=== PATIENT | female | born 2005 | race African-American/Black ===

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

== ENCOUNTER 2024-07-24 10:00 | Day surgery (SDC) | payer MEDICAID ==
[2024-07-24] MEDS ORDERED: Acetaminophen 500 MG TAB ONE (10:26)
[2024-07-24] MEDS: Acetaminophen 500 MG TAB PO SCH (10:28)
[2024-07-24] MEDS: Ferumoxytol (ERSD) 510 MG in 0.9 % Sodium Chloride 150 ML IVPB SCH (10:47)
[2024-07-24 15:12] VITALS: BP 108/54; TEMP 98.7
== END 2024-07-24 15:26 | disposition home or self-care (01) ==
LOC: ONC/OP 10:00
PROVIDERS: ATTEND Family Medicine
DX: O99.019 Anemia complicating pregnancy, unspecified trimester (principal); Z3A.00 Weeks of gestation of pregnancy not specified
CPT/HCPCS: 96365; 96366; Q0139

== ENCOUNTER 2024-09-24 09:03 | Day surgery (SDC) | payer MEDICAID ==
[2024-09-24] MEDS ORDERED: Acetaminophen 500 MG TAB ONE (09:09)
[2024-09-24] MEDS: Acetaminophen 500 MG TAB PO SCH (09:11)
[2024-09-24] MEDS: Iron Sucrose Complex 250 MG in Sodium Chloride 0.9% 250 ML 250 ML IVPB SCH (10:22)
[2024-09-24 15:15] VITALS: BP 115/59; TEMP 98.8
[2024-09-24] MEDS ORDERED: Acetaminophen 500 MG TAB PO SCH (15:15)
[2024-09-24] MEDS ORDERED: diphenhydrAMINE 25 MG CAP PO SCH (15:15)
== END 2024-09-24 15:15 | disposition home or self-care (01) ==
LOC: ONC/OP 09:03
PROVIDERS: ATTEND Family Medicine
DX: O99.019 Anemia complicating pregnancy, unspecified trimester (principal); Z3A.00 Weeks of gestation of pregnancy not specified
CPT/HCPCS: 96365; 96366; J1756; J7050